=== PATIENT | male | born 1980 | race Caucasian/White ===

== ENCOUNTER 2022-09-11 07:11 | Day surgery (SDC) | payer OTHER ==
[~2022-09-11 07:11] MED LIST: Lactated Ringers 1,000 ML IV SCH; Lidocaine 1%/Sod Bicarbonate in NS 8.4% 1 ML Syringe IDERM PRN; Sodium Chloride 0.9% 10 ML Syringe FLUSH PRN; Sodium Chloride 0.9% 10 ML Syringe FLUSH SCH
[2022-09-11] MEDS ORDERED: Lidocaine 1% 30 ML SDV ONE (07:19)
[2022-09-11] MEDS ORDERED: Bupivacaine 0.5%/EPINEPHrine 1:200,000 50 ML MDV ONE (07:19)
[2022-09-11] MEDS ORDERED: Lactated Ringers 1,000 ML ONE (07:24)
[2022-09-11] MEDS ORDERED: Propofol 200 MG/20 ML SDV ONE (07:24)
[2022-09-11] MEDS ORDERED: Dexamethasone 4 MG/ML 5 ML MDV ONE (07:24)
[2022-09-11] MEDS ORDERED: fentaNYL 100 MCG/2 ML SDV ONE (07:24)
[2022-09-11] MEDS ORDERED: Ondansetron 4 MG/2 ML SDV ONE (07:24)
[2022-09-11] MEDS ORDERED: ceFAZolin 2 GM Vial ONE (07:24)
[2022-09-11] MEDS ORDERED: Ketorolac 30 MG/ML SDV ONE (07:24)
[2022-09-11] MEDS ORDERED: Midazolam 1 MG/ML 2 ML SDV ONE ×2 (07:25→07:52)
[2022-09-11] MEDS ORDERED: Acetaminophen 325 MG Tab PO ONE (07:49)
[2022-09-11] MEDS ORDERED: Ketamine 500 mg/10 ML MDV ONE (08:14)
[2022-09-11] MEDS ORDERED: HYDROmorphone 0.5 MG/0.5 ML Syringe ONE ×2 (08:19→09:48)
[2022-09-11] MEDS ORDERED: Midazolam 1 MG/ML 2 ML SDV IVPUSH PRN (08:37)
[2022-09-11] MEDS ORDERED: diphenhydrAMINE 50 MG/ML SDV IVPUSH PRN (08:37)
[2022-09-11] MEDS ORDERED: Phenylephrine HCl In 0.9% NaCl 1 MG/10 ML Syringe IVPUSH PRN (08:37)
[2022-09-11] MEDS ORDERED: ePHEDrine 50 MG/ML SDV IVPUSH PRN (08:37)
[2022-09-11] MEDS ORDERED: Ondansetron 4 MG/2 ML SDV IVPUSH PRN (08:37)
[2022-09-11] MEDS ORDERED: HYDROmorphone 0.5 MG/0.5 ML Syringe IVPUSH PRN (08:37)
[2022-09-11] MEDS ORDERED: fentaNYL 100 MCG/2 ML SDV IVPUSH PRN (08:37)
[2022-09-11] MEDS ORDERED: Phenylephrine HCl In 0.9% NaCl 1 MG/10 ML Vial IVPUSH PRN (08:47)
[2022-09-11] MEDS ORDERED: Ketorolac 15 MG/ML SDV ONE (10:04)
== END 2022-09-11 13:52 | disposition home or self-care (01) ==
LOC: JD.SDS 07:11
PROVIDERS: ATTEND Surgery
DX: K40.20 Bilateral inguinal hernia, without obstruction or gangrene, not specified as recurrent (principal); K21.9 Gastro-esophageal reflux disease without esophagitis; Z79.899 Other long term (current) drug therapy
CPT/HCPCS: 49505; A9270; J0690; J1100; J1170; J1885; J2250; J2405; J2704; J3010; J3490; J7120; C1781